=== PATIENT | male | born 1960 | race Caucasian/White ===

== ENCOUNTER 2017-09-04 11:19 | Observation (INO) | payer SELFPAY ==
[2017-09-04 11:50] LABS: Basophils # (A) 0.1 k/uL (0-0.2); Basophils % (A) 1 %; Eosinophils # (A) 0.1 k/uL (0-0.7); Eosinophils % (A) 1 %; HCT 43.7 % (39.0-53.0); HGB 14.8 gm/dL (13.0-17.5); Lymphocytes # (A) 1.2 k/uL (1.0-4.8); Lymphocytes % (A) 14 %; MCH 29.2 pg (25.0-35.0); MCHC 33.9 g/dL (31.0-37.0); MCV 86.2 fL (80.0-100.0); Mean Platelet Volume 7.3; Monocytes # (A) 0.3 k/uL (0-1.0); Monocytes % (A) 3 %; Neutrophils # (A) 6.7 k/uL (1.3-7.7); Neutrophils % (A) 80 %; Platelet Count 237 k/uL (150-450); RBC 5.07 m/uL (4.30-5.90); RDW 12.3 % (11.5-15.5); WBC 8.4 k/uL (3.8-10.6)
--- NOTE | 2017-09-04 11:55 | ED ---
General Adult HPI - General Chief complaint: Chest Pain Stated complaint: chest pain Time Seen by Provider: 09/04/17 11:25 Source: patient, RN notes reviewed, old records reviewed Mode of arrival: ambulatory Limitations: no limitations - History of Present Illness Initial comments: This is a 56-year-old male the ER for evaluation of chest pain patient's family history of heart disease positive high cholesterol. Patient using diet and exercise. Patient states he had twinges of substernal pressure left-sided chest. Which happened this morning. Symptoms have abated. No shortness of breath no diaphoresis no trauma. No fevers cough or congestion. No recent travel history. - Related Data Home Medications Medication Instructions Recorded Confirmed Flaxseed [Flaxseed Oil] 1 tab PO DAILY 10/22/14 09/04/17 Garlic 0.5 tab PO DAILY 10/22/14 09/04/17 Multivitamin [Men's Multi-Vitamin] 1 tab PO DAILY 10/22/14 09/04/17 Aspirin EC [Ecotrin Low Dose] 243 mg PO DAILY 09/04/17 09/04/17 Allergies Allergy/AdvReac Type Severity Reaction Status Date / Time No Known Allergies Allergy Verified 09/04/17 11:43 Review of Systems ROS Statement: Those systems with pertinent positive or pertinent negative responses have been documented in the HPI. ROS Other: All systems not noted in ROS Statement are negative. Past Medical History Past Medical History: No Reported History Additional Past Medical History / Comment(s): Diverticulosis History of Any Multi-Drug Resistant Organisms: None Reported Past Surgical History: Orthopedic Surgery Additional Past Surgical History / Comment(s): left knee surgery, left ankle surgery Past Anesthesia/Blood Transfusion Reactions: No Reported Reaction Past Psychological History: No Psychological Hx Reported Smoking Status: Never smoker Past Alcohol Use History: Occasional Past Drug Use History: None Reported - Past Family History Mother Family Medical History: Memory Impairment, Pneumonia Father Family Medical History: Hypertension, Myocardial Infarction ([place]), Rheumatoid Arthritis ([place]) General Exam Limitations: no limitations General appearance: alert, in no apparent distress Head exam: Present: atraumatic, normocephalic, normal inspection Eye exam: Present: normal appearance, PERRL, EOMI. Absent: scleral icterus, conjunctival injection, periorbital swelling ENT exam: Present: normal exam, mucous membranes moist Neck exam: Present: normal inspection. Absent: tenderness, meningismus, lymphadenopathy Respiratory exam: Present: normal lung sounds bilaterally. Absent: respiratory distress, wheezes, rales, rhonchi, stridor Cardiovascular Exam: Present: regular rate, normal rhythm, normal heart sounds. Absent: systolic murmur, diastolic murmur, rubs, gallop, clicks GI/Abdominal exam: Present: soft, normal bowel sounds. Absent: distended, tenderness, guarding, rebound, rigid Extremities exam: Present: normal inspection, full ROM, normal capillary refill. Absent: tenderness, pedal edema, joint swelling, calf tenderness Back exam: Present: normal inspection Neurological exam: Present: alert, oriented X3, CN II-XII intact Psychiatric exam: Present: normal affect, normal mood Skin exam: Present: warm, dry, intact, normal color. Absent: rash Course Vital Signs 09/04/17 09/04/17 09/04/17 11:22 13:50 13:52 Temperature 98.5 F Pulse Rate 107 H 86 85 Respiratory 18 19 16 Rate Blood Pressure 157/79 127/76 127/76 O2 Sat by Pulse 99 100 98 Oximetry 09/04/17 14:00 Temperature Pulse Rate 90 Respiratory Rate Blood Pressure O2 Sat by Pulse 97 Oximetry - Reevaluation(s) Reevaluation #1: 09/04/17 16:32 Patient having episodic chest pain, patient does have increased mild troponin leak EKG Findings - EKG Comments: EKG Findings:: EKG shows sinus tachycardia rate 105, [place] 134, QRS 84, QTC 449 Medical Decision Making - Medical Decision Making 56 male the ER with chest pain. Patient with mild troponin leak, patient be admitted for cardiac observation, telemetry and serial troponins, - Lab Data Result diagrams: 09/04/17 11:35 09/04/17 11:35 Lab Results 09/04/17 09/04/17 09/04/17 Range/Units 11:35 11:35 11:35 WBC 8.4 (3.8-10.6) k/uL RBC 5.07 (4.30-5.90) m/uL Hgb 14.8 (13.0-17.5) gm/dL Hct 43.7 (39.0-53.0) % MCV 86.2 (80.0-100.0) fL MCH 29.2 (25.0-35.0) pg MCHC 33.9 (31.0-37.0) g/dL RDW 12.3 (11.5-15.5) % Plt Count 237 (150-450) k/uL Neutrophils % 80 % Lymphocytes % 14 % Monocytes % 3 % Eosinophils % 1 % Basophils % 1 % Neutrophils # 6.7 (1.3-7.7) k/uL Lymphocytes # 1.2 (1.0-4.8) k/uL Monocytes # 0.3 (0-1.0) k/uL Eosinophils # 0.1 (0-0.7) k/uL Basophils # 0.1 (0-0.2) k/uL PT (9.0-12.0) sec INR (<1.2) APTT (22.0-30.0) sec D-Dimer (<0.60) mg/L FEU Sodium 140 (137-145) mmol/L Potassium 4.3 (3.5-5.1) mmol/L Chloride 104 (98-107) mmol/L Carbon Dioxide 24 (22-30) mmol/L Anion Gap 12 mmol/L BUN 14 (9-20) mg/dL Creatinine 0.89 (0.66-1.25) mg/dL Est GFR (MDRD) Af Amer >60 (>60 ml/min/1.73 sqM) Est GFR (MDRD) Non-Af >60 (>60 ml/min/1.73 sqM) Glucose 93 (74-99) mg/dL Calcium 9.4 (8.4-10.2) mg/dL Magnesium 2.0 (1.6-2.3) mg/dL Total Bilirubin 1.6 H (0.2-1.3) mg/dL AST 27 (17-59) U/L ALT 32 (21-72) U/L Alkaline Phosphatase 87 (38-126) U/L Total Creatine Kinase 57 (55-170) U/L CK-MB (CK-2) 1.0 (0.0-2.4) ng/mL CK-MB (CK-2) Rel Index 1.8 Troponin I 0.019 (0.000-0.034) ng/mL Total Protein 7.4 (6.3-8.2) g/dL Albumin 4.6 (3.5-5.0) g/dL Lipase 119 (23-300) U/L 09/04/17 09/04/17 Range/Units 11:35 14:50 WBC (3.8-10.6) k/uL RBC (4.30-5.90) m/uL Hgb (13.0-17.5) gm/dL Hct (39.0-53.0) % MCV (80.0-100.0) fL MCH (25.0-35.0) pg MCHC (31.0-37.0) g/dL RDW (11.5-15.5) % Plt Count (150-450) k/uL Neutrophils % % Lymphocytes % % Monocytes % % Eosinophils % % Basophils % % Neutrophils # (1.3-7.7) k/uL Lymphocytes # (1.0-4.8) k/uL Monocytes # (0-1.0) k/uL Eosinophils # (0-0.7) k/uL Basophils # (0-0.2) k/uL PT 11.4 (9.0-12.0) sec INR 1.2 H (<1.2) APTT 26.9 (22.0-30.0) sec D-Dimer 0.22 (<0.60) mg/L FEU Sodium (137-145) mmol/L Potassium (3.5-5.1) mmol/L Chloride (98-107) mmol/L Carbon Dioxide (22-30) mmol/L Anion Gap mmol/L BUN (9-20) mg/dL Creatinine (0.66-1.25) mg/dL Est GFR (MDRD) Af Amer (>60 ml/min/1.73 sqM) Est GFR (MDRD) Non-Af (>60 ml/min/1.73 sqM) Glucose (74-99) mg/dL Calcium (8.4-10.2) mg/dL Magnesium (1.6-2.3) mg/dL Total Bilirubin (0.2-1.3) mg/dL AST (17-59) U/L ALT (21-72) U/L Alkaline Phosphatase (38-126) U/L Total Creatine Kinase (55-170) U/L CK-MB (CK-2) (0.0-2.4) ng/mL CK-MB (CK-2) Rel Index Troponin I 0.022 (0.000-0.034) ng/mL Total Protein (6.3-8.2) g/dL Albumin (3.5-5.0) g/dL Lipase (23-300) U/L - Radiology Data Radiology results: report reviewed (CTA chest negative), image reviewed Critical Care Time Critical Care Time: Yes Total Critical Care Time: 31 Disposition Clinical Impression: Chest pain Disposition: ADMITTED IP TO THIS [facility] Condition: Undetermined
[2017-09-04 12:03] LABS: ALT 32 U/L (21-72); AST 27 U/L (17-59); Albumin 4.6 g/dL (3.5-5.0); Alkaline Phosphatase 87 U/L (38-126); Anion Gap 12 mmol/L; Blood Urea Nitrogen 14 mg/dL (9-20); Calcium 9.4 mg/dL (8.4-10.2); Carbon Dioxide 24 mmol/L (22-30); Chloride 104 mmol/L (98-107); Glucose 93 mg/dL (74-99); Lipase 119 U/L (23-300); Potassium 4.3 mmol/L (3.5-5.1); Sodium 140 mmol/L (137-145); Total Bilirubin 1.6 mg/dL (0.2-1.3); Total Protein 7.4 g/dL (6.3-8.2)
[2017-09-04 12:11] LABS: D-Dimer 0.22 mg/L FEU (<0.60); INR 1.2 (<1.2); Partial Thromboplastin Time 26.9 sec (22.0-30.0); Prothrombin Time 11.4 sec (9.0-12.0)
[2017-09-04 12:30] LABS: Troponin I 0.019 ng/mL (0.000-0.034)
[2017-09-04] MEDS ORDERED: RX INFO: IV CONTRAST WAS GIVEN 1 EACH MISC MISCELLANE PRN (12:33)
--- NOTE | 2017-09-04 13:20 | CT ---
EXAMINATION TYPE: CT angio chest DATE OF EXAM: 09/04/2017 COMPARISON: NONE HISTORY: chest pain rule out pulmonary embolism CT DLP: 2334 (CTA chest and CT abd pelvis) mGycm. Automated Exposure Control for Dose Reduction was U tilized. CONTRAST: CTA scan of the thorax is performed with IV Contrast, patient injected with 100 mL of Omnipaque 350, pulmonary embolism protocol. MIP Images are created on CT scanner and reviewed. FINDINGS: LUNGS: There is linear atelectasis or scarring superiorly in the right lower lobe. There is depende nt atelectasis in the bilateral bases near diaphragm. No suspicious nodule or mass is present bilater ally. There is no pleural effusion or pneumothorax seen bilaterally. The tracheobronchial tree is pa tent. MEDIASTINUM: There is suboptimal bolus with equal contrast seen in right and left heart systems, ther e is no large central pulmonary embolism. Smaller segmental and subsegmental PE is not clearly identi fied but there is more heterogeneous material at this level noted making evaluation slightly suboptim al. No aortic aneurysm or dissection. There are no greater than 1 cm hilar or mediastinal lymph nodes . No cardiomegaly or pericardial effusion is seen. OTHER: Bilateral gynecomastia is appreciated. IMPRESSION: Suboptimal study without CT evidence for pulmonary embolism. No suspicious acute pulmonar y process identified.
--- NOTE | 2017-09-04 13:25 | CT ---
EXAMINATION TYPE: CT abdomen pelvis w con DATE OF EXAM: 09/04/2017 COMPARISON: NONE HISTORY: chest and abdominal pain not further specified CT DLP: 2334 (CTA chest and CT abd pelvis) mGycm, Automated Exposure Control for Dose Reduction was U tilized. CONTRAST: CT scan of the abdomen and pelvis is performed without oral but with IV Contrast, patient injected wi th 100 mL of Omnipaque 350. FINDINGS: LUNG BASES: Please refer to same day CTA study for complete details on lower thorax. LIVER/GB: No significant abnormality is appreciated. PANCREAS: No significant abnormality is seen. SPLEEN: No significant abnormality is seen. ADRENALS: No significant abnormality is seen. KIDNEYS: No significant abnormality is seen. BOWEL: No suspicious bowel dilatation is seen. Small bowel feces sign terminal ileum is noted. Scat tered colonic diverticula are present. There is no convincing CT evidence for acute diverticulitis PROSTATE/SEMINAL VESICLES: Scattered pelvic phleboliths are present. Prostate gland is within normal limits but slightly bulging on bladder base. Bladder wall thickness is upper limits of normal. LYMPH NODES: No greater than 1cm abdominal or pelvic lymph nodes are appreciated. OSSEOUS STRUCTURES: Bilateral pars defects L5 level are seen. There is grade 1 anterolisthesis of L5 on S1. There is moderate to advanced disc space narrowing with vacuum disc phenomenon L5-S1 level. OTHER: No significant additional abnormality is seen. IMPRESSION: Colonic diverticulosis without CT evidence for acute diverticulitis. No significant acute finding is seen to account for patient's clinical symptoms.
[2017-09-04] MEDS ORDERED: HEPARIN SODIUM,PORCINE 5,000 UNIT/ML 1 ML VIAL IV ONE (16:17)
[2017-09-04] MEDS ORDERED: ASPIRIN 81 MG PO STA (16:17)
[2017-09-04] MEDS ORDERED: HEPARIN SODIUM,PORCINE 5,000 UNIT/ML 1 ML VIAL IV PRN (16:17)
[2017-09-04] MEDS ORDERED: NITROGLYCERIN SL TABS 0.4 MG TAB SUBLINGUAL PRN (16:17)
[2017-09-04] MEDS ORDERED: HEPARIN SOD,PORK IN 0.45% NACL 25,000 UNIT in 0.45% NACL 1 500ML.BAG IV SCH (16:30)
[2017-09-04 18:28] LABS: Creatine Kinase MB 0.7 ng/mL (0.0-2.4); Troponin I 0.021 ng/mL (0.000-0.034)
[2017-09-04] MEDS: METOPROLOL TARTRATE 25 MG TAB PO SCH (20:21)
--- NOTE | 2017-09-04 23:28 | HP ---
HISTORY AND PHYSICAL I am covering for Dr. King. HISTORY OF PRESENT ILLNESS: This 56-year-old gentleman with a past medical history of multiple medical problems, including GI bleed, history of pneumonia, history anemia, diverticulosis, history of hernia repair being followed by Dr. King in the outpatient setting, having an upper respiratory infection recently. The patient is complaining of chest pain which are twinges felt on the on the center part of the chest and also on the left-side of the chest and it happened this morning without much radiation palpitations, sweating or shortness of breath and patient came to [facility] and was admitted for further evaluation and treatment. The patient had abdominal-pelvis CAT scan which showed colonic diverticulosis without any evidence of acute symptoms and a chest CT was also done to rule out the possibility of pulmonary embolism, which is suboptimal , but no evidence of pulmonary embolism was noted. There was no history of any fever, rigors. No history of headache loss of consciousness, seizures. PAST MEDICAL HISTORY: History of GI bleed, pneumonia, diverticulosis, hernia repair, DJD. MEDICATIONS PRIOR TO ADMISSION: Include: 1. Ecotrin 160 mg p.o. daily. 2. Multivitamins 1 p.o. daily. 3. Garlic 0.5 daily. 4. Flaxseed oil 1 tablet p.o. daily. ALLERGIES: None. FAMILY HISTORY: History of memory impairment, pneumonia in the family. SOCIAL HISTORY: No history of smoking. Occasional alcohol intake. REVIEW OF SYSTEMS: ENT: Mentioned earlier. CARDIOVASCULAR: As mentioned earlier. RESPIRATORY: As mentioned earlier. GI: No nausea or vomiting. : No dysuria. NERVOUS: No numbness or weakness. ALLERGY/IMMUNOLOGY: No asthma or hay fever. MUSCULOSKELETAL: As mentioned earlier. HEMATOLOGY/ONCOLOGY: No history of anemia. ENDOCRINE: No history of diabetes, hypothyroidism. CONSTITUTIONAL: As mentioned earlier. DERMATOLOGY: Negative. RHEUMATOLOGY: Negative. PSYCHIATRY: As mentioned earlier. PHYSICAL EXAMINATION: Alert, oriented x3. Pulse 82, blood from 150/87, respirations 16, temperature 97 degrees, pulse ox 98% on room air. HEENT: Conjunctivae normal. Oral mucosa moist. NECK: No jugular venous distention. No carotid bruits. No lymph node enlargement. CARDIOVASCULAR: S1, S2 muffled. RESPIRATORY: Breath sounds diminished in the bases. No rhonchi. No crackles. ABDOMEN: Soft, nontender. No mass palpable. LEGS: No edema. No swelling. NERVOUS SYSTEM: Higher functions as mentioned earlier. Moves all 4 limbs. No focal motor or sensory deficits. LYMPHATIC: No lymphadenopathy in neck or axillae. SKIN: No ulcer, rash or bleeding. LABS: CBC within normal limits. The INR is 1.2. Bilirubin is 1.6 and creatine kinase 45. Influenza negative. ASSESSMENT: 1. Chest pain, possible unstable angina, possibly musculoskeletal. 2. History of recent upper respiratory infection. 3. History of gastrointestinal bleed. 4. History of pneumonia. 5. History of gastritis. 6. History of hernia repair. 7. History of degenerative joint disease/. RECOMMENDATIONS AND DISCUSSION: In this 56-year-old gentleman who presented with multiple medical problems, we will monitor the patient closely, continue the current medical management and symptomatic treatment. Otherwise at this time I would recommend rule out myocardial infarction, unstable angina protocol. Closely monitor. Otherwise, cardiology consultation, possible stress test with the primary physician. Also recommend the patient closely follow with Dr. King in the outpatient setting as well. MMODL / IJN: [id number] / [place]
[2017-09-05 00:21] LABS: Creatine Kinase MB 0.7 ng/mL (0.0-2.4); Troponin I 0.026 ng/mL (0.000-0.034)
[2017-09-05 07:10] LABS: Mean Platelet Volume 6.9; Platelet Count 221 k/uL (150-450)
[2017-09-05 07:50] LABS: Cholesterol 221 mg/dL (<200); HDL Cholesterol 58 mg/dL (40-60); LDL Cholesterol,Calculated 148 mg/dL (0-99); Triglycerides 74 mg/dL (<150)
--- NOTE | 2017-09-05 08:25 | P.CRDCN ---
History of Present Illness Consult date: 09/05/17 Requesting physician: Ryan King Consult reason: chest pain Chief complaint: Chest pain History of present illness: This is a 56-year-old gentleman with no prior documented history of hypertension, no hyperlipidemia, nondiabetic, he is a nonsmoker, patient does have a family history of premature coronary artery disease in his father. Patient does have a history of prior GI bleed, history of pneumonia, history of anemia. He is physically active, works out every day, also walks his dog several miles a day. For the past few days, patient states he's been noticing a tightness in his chest, according to the patient, prior to coming to the hospital, he states that he was walking down his driveway, and became lightheaded like he may pass out. Associated with that he also had this persistent chest tightness which seems to come and go especially with exertion. For these reasons he came to the emergency room for further evaluation. His initial EKG performed on arrival here showed a sinus tachycardia nonspecific ST- T wave changes, EKG performed this morning shows a normal sinus rhythm with nonspecific ST-T wave changes. The pressure on arrival here 156/78, heart rate 108, temperature 98.5 East 99% on room air. Blood pressure this morning 123/72 , heart rate in the 60s, he is afebrile. CBC is normal. D-dimer negative. Sodium 140, potassium 4.3, BUN 14, creatinine 0.8. Troponins 0.019, 0.0-2, 0.0- 1, 0.026. Influenza A and B were negative. Cholesterol 221, LDL 148, HDL 58, triglycerides 70. CAT scan of the abdomen and pelvis was performed which revealed diverticulosis. CT of the chest negative for pulmonary embolism. At the time of my examination this morning he is currently chest pain-free, he does state that earlier this morning he had chills lasting approximately a half hour. Past Medical History Past Medical History: GI Bleed, Pneumonia Additional Past Medical History / Comment(s): anemia Diverticulosis, gastritis History of Any Multi-Drug Resistant Organisms: None Reported Past Surgical History: Hernia Repair, Orthopedic Surgery, Tonsillectomy Additional Past Surgical History / Comment(s): left knee surgery(acl, chipped meniscus), left ankle arthroscopy, rt inguinal hernia, egd, colonoscopy Past Anesthesia/Blood Transfusion Reactions: No Reported Reaction Smoking Status: Never smoker - Past Family History Mother Family Medical History: Memory Impairment, Pneumonia Father Family Medical History: Hypertension, Myocardial Infarction ([place]), Rheumatoid Arthritis ([place]) Medications and Allergies Home Medications Medication Instructions Recorded Confirmed Type Flaxseed [Flaxseed Oil] 1 tab PO DAILY 10/22/14 09/04/17 History Garlic 0.5 tab PO DAILY 10/22/14 09/04/17 History Multivitamin [Men's Multi-Vitamin] 1 tab PO DAILY 10/22/14 09/04/17 History Aspirin EC [Ecotrin Low Dose] 162 mg PO DAILY 09/04/17 09/04/17 History Allergies Allergy/AdvReac Type Severity Reaction Status Date / Time No Known Allergies Allergy Verified 09/04/17 11:43 Physical Exam Vitals: Vital Signs Temp Pulse Pulse Resp BP BP Pulse Ox 09/05/17 04:00 98 F 61 18 123/72 97 09/05/17 03:51 64 18 09/04/17 23:58 66 18 09/04/17 22:07 74 18 113/66 95 09/04/17 20:26 97 F L 82 16 150/87 98 09/04/17 20:00 82 16 09/04/17 19:10 97.1 F L 97 17 142/87 98 09/04/17 17:37 99 09/04/17 17:19 97.7 F 82 18 133/78 97 09/04/17 14:00 90 97 09/04/17 13:52 85 16 127/76 98 09/04/17 13:50 86 19 127/76 100 09/04/17 11:22 98.5 F 107 H 18 157/79 99 Intake and Output 09/04/17 09/05/17 09/05/17 22:59 06:59 14:59 Intake Total 1120 363.918 Balance 1120 363.918 Intake: IV 200 Heparin Sod,Pork in 0.45% 200 NaCl 25,000 unit In 0.45 % NaCl 1 500ml.bag @ 11.4 UNITS/KG/HR 19.85 mls/hr IV .Q24H [facility] Rx#: [id number] Intake, IV Titration 80 163.918 Amount Heparin Sod,Pork in 0.45% 80 163.918 NaCl 25,000 unit In 0.45 % NaCl 1 500ml.bag @ 11.4 UNITS/KG/HR 19.85 mls/hr IV .Q24H [facility] Rx#: [id number] Oral 1040 Other: Voiding Method Toilet Toilet # Voids 2 2 Weight 91.3 kg PHYSICAL EXAMINATION: HEENT: [Head is atraumatic, normocephalic. Pupils equal, round. Neck is supple. There is no elevated jugular venous pressure.] HEART EXAMINATION: [Heart S1, S2 normal. No murmur or gallop heard.] CHEST EXAMINATION:[ Lungs are clear to auscultation and precussion. No chest wall tenderness is noted on palpation or with deep breathing.] ABDOMEN: [ Soft, nontender. Bowel sounds are heard. No organomegaly noted]. EXTREMITIES:[ 2+ peripheral pulses with no evidence of peripheral edema and no calf tenderness noted]. NEUROLOGIC [patient is awake, alert and oriented -3.] . Results 09/05/17 06:57 09/04/17 11:35 Cardiac Enzymes 09/04/17 09/04/17 09/04/17 Range/Units 11:35 11:35 14:50 AST 27 (17-59) U/L CK-MB (CK-2) 1.0 (0.0-2.4) ng/mL Troponin I 0.019 0.022 (0.000-0.034) ng/mL 09/04/17 09/04/17 Range/Units 17:35 23:19 AST (17-59) U/L CK-MB (CK-2) 0.7 0.7 (0.0-2.4) ng/mL Troponin I 0.021 0.026 (0.000-0.034) ng/mL Coagulation 09/04/17 09/04/17 09/05/17 Range/Units 11:35 23:19 06:57 PT 11.4 (9.0-12.0) sec APTT 26.9 39.3 H 47.3 H (22.0-30.0) sec Lipids 09/05/17 Range/Units 06:57 Triglycerides 74 (<150) mg/dL Cholesterol 221 H (<200) mg/dL HDL Cholesterol 58 (40-60) mg/dL CBC 03/02/18 03/03/18 Range/Units 11:35 06:57 WBC 8.4 (3.8-10.6) k/uL RBC 5.07 (4.30-5.90) m/uL Hgb 14.8 (13.0-17.5) gm/dL Hct 43.7 (39.0-53.0) % Plt Count 237 221 (150-450) k/uL Comprehensive Metabolic Panel 09/04/17 Range/Units 11:35 Sodium 140 (137-145) mmol/L Potassium 4.3 (3.5-5.1) mmol/L Chloride 104 (98-107) mmol/L Carbon Dioxide 24 (22-30) mmol/L BUN 14 (9-20) mg/dL Creatinine 0.89 (0.66-1.25) mg/dL Glucose 93 (74-99) mg/dL Calcium 9.4 (8.4-10.2) mg/dL AST 27 (17-59) U/L ALT 32 (21-72) U/L Alkaline Phosphatase 87 (38-126) U/L Total Protein 7.4 (6.3-8.2) g/dL Albumin 4.6 (3.5-5.0) g/dL Current Medications Generic Name Dose Route Start Last Admin Trade Name Freq PRN Reason Stop Dose Admin Aspirin 325 mg 09/05/17 09:00 Aspirin PO DAILY [facility] Atorvastatin Calcium 80 mg 09/05/17 09:00 Lipitor PO DAILY [facility] Heparin Sodium (Porcine) 0 unit 09/04/17 16:17 Heparin IV Q6HR PRN Low PTT Protocol Heparin Sodium/Sodium Chloride 500 mls @ 19.85 mls/hr 09/04/17 16:30 01:01 25,000 unit/ Sodium Chloride IV 14.48 units/kg/hr .Q24H [facility] 25.22 mls/hr Protocol Titration 11.4 UNITS/KG/HR Metoprolol Tartrate 25 mg 09/04/17 21:00 09/04/17 20:21 Lopressor PO 25 mg BID [facility] Administration Miscellaneous Information 1 each 09/04/17 12:33 09/04/17 13:47 Rx Info: Iv Contrast Was Given MISCELLANE 09/06/17 12:33 1 each DAILY PRN Administration Per Protocol Nitroglycerin 0.4 mg 09/04/17 16:17 Nitrostat SUBLINGUAL Q5M PRN Chest Pain Intake and Output 09/04/17 09/05/17 09/05/17 22:59 06:59 14:59 Intake Total 1120 363.918 Balance 1120 363.918 Intake: IV 200 Heparin Sod,Pork in 0.45% 200 NaCl 25,000 unit In 0.45 % NaCl 1 500ml.bag @ 11.4 UNITS/KG/HR 19.85 mls/hr IV .Q24H [facility] Rx#: [id number] Intake, IV Titration 80 163.918 Amount Heparin Sod,Pork in 0.45% 80 163.918 NaCl 25,000 unit In 0.45 % NaCl 1 500ml.bag @ 11.4 UNITS/KG/HR 19.85 mls/hr IV .Q24H [facility] Rx#: [id number] Oral 1040 Other: Voiding Method Toilet Toilet # Voids 2 2 Weight 91.3 kg 09/05/17 06:57 09/04/17 11:35 EKG Interpretations (text) EKG shows normal sinus rhythm with nonspecific ST-T wave changes Assessment and Plan Plan: Assessment and plan #1 symptoms of exertional chest tightness, suggestive of acute coronary syndrome. Troponin 0.019, 0.022, 0.021, 0.026. D-dimer negative. EKG shows normal sinus rhythm with nonspecific ST-T wave changes #2 cardiac risk factors negative for hypertension, no diabetes, no prior documented hyperlipidemia, nonsmoker. Cholesterol here is 221, LDL 148, HDL 58 , triglycerides 74 #3 family history of premature coronary artery disease Plan Will obtain an echocardiogram with Doppler study. Patient has also been initiated here on Lipitor, he is also on aspirin, IV heparin drip, metoprolol was initiated for high blood pressure and tachycardia on admission here. Patient has been advised to undergo cardiac catheterization, the risks and benefits were explained to him in detail, this will be performed today by Dr. Borden. DNP note has been reviewed, I agree with a documented findings and plan of care. Patient was seen and examined.
[2017-09-05] MEDS ORDERED: ASPIRIN 325 MG TAB PO SCH (09:00)
[2017-09-05] MEDS ORDERED: ATORVASTATIN 80 MG TAB PO SCH (09:00)
[2017-09-05] MEDS ORDERED: ASPIRIN 325 MG TAB PO STA (09:08)
[2017-09-05] MEDS ORDERED: ALPRAZolam 0.5 MG TAB PO PRN (09:08)
[2017-09-05] MEDS ORDERED: ATORVASTATIN 80 MG TAB PO STA (09:08)
[2017-09-05] MEDS ORDERED: NITROGLYCERIN SL TABS 0.4 MG TAB SUBLINGUAL PRN (09:08)
[2017-09-05] MEDS ORDERED: SODIUM CHLORIDE 0.9% 1,000 ML in EMPTY BAG 1 BAG IV ONE (09:08)
[2017-09-05] MEDS ORDERED: ALPRAZolam 0.25 MG TAB PO PRN (09:08)
[2017-09-05] MEDS: METOPROLOL TARTRATE 25 MG TAB PO SCH ×2 (09:27→19:47)
[2017-09-05] MEDS ORDERED: LIDOCAINE 2% INJ 20 MG/ML (20 ML MDV) ONE (09:50)
[2017-09-05] MEDS ORDERED: IV FLUID CONTINUATION 1,000 ML IV ONE (10:11)
[2017-09-05] MEDS ORDERED: MIDAZOLAM 2 MG/2 ML VIAL ONE (10:14)
[2017-09-05] MEDS ORDERED: fentaNYL (PF) 50 MCG/ML 2 ML AMP ONE (10:15)
[2017-09-05] MEDS ORDERED: fentaNYL (PF) 50 MCG/ML 2 ML AMP IV ONE (10:17)
[2017-09-05] MEDS: MIDAZOLAM 2 MG/2 ML VIAL IV ONE ×2 (10:17→10:20)
[2017-09-05] MEDS ORDERED: LIDOCAINE 2% INJ 20 MG/ML SQ ONE (10:19)
[2017-09-05] MEDS ORDERED: IOHEXOL 350 MG/ML 125ML BOTTLE INJ ONE (10:31)
[2017-09-05] MEDS ORDERED: RX INFO: IV CONTRAST WAS GIVEN 1 EACH MISC MISCELLANE PRN (11:03)
--- NOTE | 2017-09-05 11:17 | CC ---
CARDIAC CATHETERIZATION REPORT He is a 56-year-old gentleman who came to the hospital with a complaint of recent onset of recurrent exertional chest discomfort and shortness of breath. Patient's EKG was normal, but the troponins were mildly elevated. In view of that, the patient was recommended to have a cardiac catheterization for definitive diagnosis. PROCEDURE: The right groin was prepped and draped in the usual manner and the skin was infiltrated with 2% Xylocaine. The right femoral artery was entered using Seldinger technique, a #6-[place] sheath was placed in. Selective coronary angiography was then performed in multiple projections and the left ventriculography was performed in 30 degree [place] projection. Patient tolerated the procedure well. HEMODYNAMICS: Left ventricular end-diastolic pressure is 8 to 12 mmHg prior to angiography. No gradient is noted across the aortic valve. SELECTIVE CORONARY ANGIOGRAPHY: Left main coronary artery is normal and patent. LAD is mildly ectatic in its proximal portion and uses a good size diagonal branch. LAD and its branches are normal. Circumflex coronary artery is also mildly ectatic in its proximal portion. It gives rise to a good size obtuse marginal branch and it is normal. Right coronary artery is dominant in distribution, gives rise to the posterior descending artery and is normal. Left ventriculography reveals normal left ventricular systolic function. FINAL IMPRESSION: This study reveals some mildly ectatic proximal left anterior descending artery and circumflex coronary artery without any hemodynamically significant stenosis. Left ventricular end-diastolic pressure and ejection fractions are normal. RECOMMENDATIONS: Medical treatment and risk factor modification. MMODL / IJN: [id number] /
[2017-09-05] MEDS: SODIUM CHLORIDE 0.9% 1,000 ML IV SCH ×2 (11:23→19:48)
[2017-09-05] MEDS: CLOPIDOGREL 75 MG TAB PO SCH (11:57)
--- NOTE | 2017-09-05 17:54 | PN ---
PROGRESS NOTE DATE OF SERVICE: 09/05/2017 I am covering for Dr. King. This 56-year-old gentleman who was admitted with chest pain, possible unstable angina and musculoskeletal pain, is being closely monitored. No chest pain. No palpitations. The patient underwent a cardiac catheterization today. Cardiac cath showed mildly ectatic proximal LAD and circumflex artery without any hemodynamically significant stenosis. No chest pain. No palpitations. No fever. PHYSICAL EXAM: Alert and oriented x3. Pulse 63, blood pressure 110/63, respirations 16, temperature 98.7, pulse ox 94% room air. HEENT: Conjunctivae normal. Oral mucosa moist. NECK: No jugular venous distention. No carotid bruit. No lymph node enlargement. CARDIOVASCULAR: S1, S2. RESPIRATORY: Breath sounds diminished in the bases. A few rhonchi. No crackles. ABDOMEN: Soft, nontender. LEGS: No edema. NERVOUS SYSTEM: No focal abscess. CBC within normal limits. the aPTT is 339.3, cholesterol 221, LDL is 148. ASSESSMENT: 1. Chest pain, possible unstable angina, status post cardiac catheterization. 2. History of recent upper respiratory infection. 3. Hyperlipidemia. 4. History of gastrointestinal bleed. 5. History of pneumonia. 6. History of gastritis. 7. History of hernia. 8. History of degenerative joint disease. RECOMMENDATIONS AND DISCUSSION: This 56-year-old gentleman who presented with multiple complex medical issues, at this time, we will monitor the patient closely. Continue the current management and symptomatic treatment. Otherwise I would recommend continue the current medications. Otherwise, medical management. Antiplatelet agents. Lipitor. Closely monitor and recommend close follow up with Dr. King in the outpatient setting. MMODL / IJN: [id number] /
[2017-09-05] MEDS ORDERED: ATORVASTATIN 20 MG TAB PO SCH (21:00)
[2017-09-06 06:28] LABS: Mean Platelet Volume 7.1; Platelet Count 211 k/uL (150-450)
[2017-09-06] MEDS: METOPROLOL TARTRATE 25 MG TAB PO SCH (08:41)
[2017-09-06] MEDS: CLOPIDOGREL 75 MG TAB PO SCH (08:41)
[2017-09-06] MEDS ORDERED: ASPIRIN 81 MG PO SCH (09:00)
[2017-09-06] MEDS: SODIUM CHLORIDE 0.9% 1,000 ML IV SCH (09:05)
[2017-09-06 09:26] VITALS: PULSE 61; RESP 18
[2017-09-06] MEDS ORDERED: MULTIVITAMINS, THERA 1 EACH TAB PO SCH (12:00)
--- NOTE | 2017-09-06 13:41 | ECHOF ---
Referral Reason:chest pain MEASUREMENTS -------- HEIGHT: 175.3 cm WEIGHT: 91.2 kg BP: 138/89 RVIDd: 3.4 cm (< 3.3) IVSd: 0.9 cm (0.6 - 1.1) LVIDd: 4.6 cm (3.9 - 5.3) LVPWd: 1.0 cm (0.6 - 1.1) IVSs: 1.4 cm LVIDs: 2.8 cm LVPWs: 1.5 cm LAESV Index (A-L): 13.33 ml/m Ao Diam: 3.9 cm (2.0 - 3.7) AV Cusp: 2.5 cm (1.5 - 2.6) LA Diam: 3.3 cm (2.7 - 3.8) EPSS: 0.4 cm MV E Josesito: 0.49 m/s MV DecT: 339 ms MV A Josesito: 0.54 m/s MV E/A Ratio: 0.90 RAP: 5.00 mmHg RVSP: 28.73 mmHg MV EF SLOPE: 91.13 mm/s (70 - 150) MV EXCURSION: 2.28 cm (> 18.000) FINDINGS -------- Sinus rhythm. This was a technically adequate study. The left ventricular size is normal. Left ventricular wall thickness is normal. Overall left vent ricular systolic function is normal with, an EF between 55 - 60 %. The right ventricle is normal in size and function. Normal LA size by volume 22+/-6 ml/m2. The right atrium is normal in size. The aortic valve is trileaflet, and appears structurally normal. No aortic stenosis or regurgitation. The mitral valve leaflets are mildly thickened. There is trace to mild mitral regurgitation. Trace tricuspid regurgitation present. Right ventricular systolic pressure is normal at < 35 mmHg. There is no evidence of pulmonary hypertension. Trace/mild (physiologic) pulmonic regurgitation. The aortic root size is normal. Normal inferior vena cava with normal inspiratory collapse consistent with estimated right atrial pre ssure of 5 mmHg. The pericardium is normal. There is no pericardial effusion. CONCLUSIONS -------- 1. Sinus rhythm. 2. This was a technically adequate study. 3. The left ventricular size is normal. 4. Left ventricular wall thickness is normal. 5. Overall left ventricular systolic function is normal with, an EF between 55 - 60 %. 6. Normal LA size by volume 22+/-6 ml/m2. 7. The aortic valve is trileaflet, and appears structurally normal. No aortic stenosis or regurgitati on. 8. The mitral valve leaflets are mildly thickened. 9. There is trace to mild mitral regurgitation. 10. Trace tricuspid regurgitation present. 11. Right ventricular systolic pressure is normal at < 35 mmHg. 12. There is no evidence of pulmonary hypertension. 13. Trace/mild (physiologic) pulmonic regurgitation. 14. The aortic root size is normal. 15. There is no pericardial effusion. MANAGEMENT PROFESSIONAL: Cristobal Villa RDCS
--- NOTE | 2017-09-06 14:21 | PN ---
PROGRESS NOTE This patient was admitted with chest pain. The patient had abnormal enzymes suggestive of non-Q-wave myocardial infarction. Cardiac catheterization revealed mild coronary artery plaque without any hemodynamically significant stenosis. In view of that, the patient is recommended medical treatment. The patient's D-dimer was negative. Right groin is normal. Blood pressure is 140/78 mmHg. First and second heart sounds are normal. Lungs are clinically clear to auscultation and percussion. The patient will be discharged home and will be seen in the office in a couple of weeks. MMODL / IJN: [id number] /
[2017-09-06 14:31] VITALS: BP 136/70; TEMP 98.1
--- NOTE | 2017-09-07 00:01 | DS ---
DISCHARGE SUMMARY I am covering for Dr. King. FINAL DIAGNOSES: 1. Chest pain, possible unstable angina, status post cardiac catheterization. 2. Hyperlipidemia. 3. History of recent upper respiratory infection. 4. History of gastrointestinal bleed. 5. History of pneumonia. 6. History of gastritis. 7. History of hernia. 8. History of degenerative joint disease. DISCHARGE DISPOSITION: The patient is being discharged in stable condition with guarded prognosis. HISTORY OF PRESENT ILLNESS: This 56-year-old gentleman with a past medical history of multiple medical problems, being followed by Dr. King, admitted with chest pain, myocardial infarction cardiology performed a cardiac catheterization that showed recommended medical treatment. Otherwise the patient was treated medically. Improved significantly. PHYSICAL EXAMINATION: On exam, vital signs stable. Cardiovascular: S1, S2. Abdomen soft. Nervous system: No focal deficits. DISCHARGE ADVICE AND MEDICATIONS: 1. Discharge diet is cardiac. 2. Activity limited until follow up. 3. Follow up with Dr. King in 2-3 days. 4. Follow up with cardiology as recommended. 5. Ecotrin 81 mg daily. 6. Lipitor 20 mg q.h.s. 7. Plavix 75 mg p.o. daily. 8. Flaxseed oil 1 tab p.o. daily. 9. Garlic 0.5 daily. 10.Lopressor 25 mg p.o. b.i.d. 11.Multivitamins one p.o. daily. 12. MMBEATRICEL / TEQUILAN: [id number] / MTDD
== END 2017-09-06 15:25 | disposition home or self-care (01) ==
LOC: EC 11:19 → 3OBS 16:17 → 6SEL 09-05 19:32
PROVIDERS: ADMIT Family Medicine; ATTEND Family Medicine
DX: R07.89 Other chest pain (principal); R77.8 Other specified abnormalities of plasma proteins; R42 Dizziness and giddiness; E78.5 Hyperlipidemia, unspecified; K57.30 Diverticulosis of large intestine without perforation or abscess without bleeding; M19.90 Unspecified osteoarthritis, unspecified site; Z79.82 Long term (current) use of aspirin; Z87.01 Personal history of pneumonia (recurrent); Z87.19 Personal history of other diseases of the digestive system; Z87.09 Personal history of other diseases of the respiratory system; Z82.49 Family history of ischemic heart disease and other diseases of the circulatory system; Z83.42 Family history of familial hypercholesterolemia; Z82.61 Family history of arthritis; Z84.89 Family history of other specified conditions
CPT/HCPCS: 96376 ×2; 96365 ×2; 99291 ×2; 96366; 93005 ×2; 36415; 93306; 93458; 85379; 80061; 80053; 82550; 82553; 83690; 83735; 84484; 85025; 85049 ×2; 85610; 85730 ×2; 87502; 71275; 74177; G0378 ×3; C1760; C1894; C1769; J2001; J2250; J1644 ×2; Q9967 ×2; J3010

== ENCOUNTER → 2021-02-26 | Outpatient (CLI) | payer BC | END | disposition home or self-care (01) | LOC: LABWHC1 10:48 | PROVIDERS: ATTEND Podiatrist | DX: M19.072 Primary osteoarthritis, left ankle and foot (principal); Z87.39 Personal history of other diseases of the musculoskeletal system and connective tissue | CPT/HCPCS: 36415; 82306 ==

== ENCOUNTER 2021-03-15 07:56 | Day surgery (SDC) | payer BC ==
[2021-03-07 15:51] VITALS: BMI 28.3
[~2021-03-15 07:56] MED LIST: DEXAMETHASONE SOD PHOSPHATE 4 MG/ML 1 ML VIAL IV ONE; LACTATED RINGERS 1,000 ML IV SCH; MIDAZOLAM 2 MG/2 ML VIAL IV PRN; ONDANSETRON 4 MG/2 ML VIAL IVP ONE; SCOPOLAMINE 1.5MG/72HR PATCH TRANSDERM ONE
[2021-03-15] MEDS ORDERED: ONDANSETRON 4 MG/2 ML VIAL IVP ONE (08:46)
[2021-03-15] MEDS: fentaNYL (PF) 50 MCG/ML 2 ML AMP IV ONE ×3 (09:39→12:42)
[2021-03-15] MEDS ORDERED: LIDOCAINE 1% INJ 10MG/ML (20 ML MDV) ONE (09:46)
[2021-03-15] MEDS ORDERED: SUCCINYLCHOLINE CHLORIDE 100 MG/5 ML SYR IV ONE (09:46)
[2021-03-15] MEDS ORDERED: PROPOFOL 10 MG/ML 20 ML VIAL IV ONE (09:46)
[2021-03-15] MEDS ORDERED: LACTATED RINGERS 1,000 ML IV ONE (11:00)
--- NOTE | 2021-03-15 11:37 | P.ANPRN ---
Procedure Note - Anesthesia - Nerve Block Performed Left Popliteal Single Time Out Performed: Yes ([id number]) Date of Procedure: 03/15/21 Procedure Start Time: 09:58 Procedure Stop Time: 10:03 Location of Patient: PreOp Indication: Acute Post-Operative Pain, Requested by Surgeon Specifically requested for management of pain by DrKelvin: William Washington Sedation Type: Sedate with meaningful contact maintained Preparation: Sterile Prep Position: Right Lateral Catheter: None Needle Types: Pajunk Needle Gauge: 21 Ultrasound used to visualize needle placement: Yes Ultrasound used to observe medication spread: Yes Injectate: 0.5% Ropivacaine (see comment for volume) (15cc + 15cc NACL PF) Blood Aspirated: No Pain Paresthesia on Injection Noted: No Resistance on Injection: Normal Image Stored and Saved: Yes Events: Uneventful and Well Tolerated Left Adductor Canal Single Time Out Performed: Yes ([id number]) Date of Procedure: 03/15/21 Procedure Start Time: 10:04 Procedure Stop Time: 10:09 Location of Patient: PreOp Indication: Acute Post-Operative Pain, Requested by Surgeon Specifically requested for management of pain by Dr.: William Washington Sedation Type: Sedate with meaningful contact maintained Preparation: Sterile Prep Position: Supine Catheter: None Needle Types: Pajunk Needle Gauge: 21 Ultrasound used to visualize needle placement: Yes Ultrasound used to observe medication spread: Yes Injectate: 0.5% Ropivacaine (see comment for volume) (15cc + 15cc NACL PF) Blood Aspirated: No Pain Paresthesia on Injection Noted: No Resistance on Injection: Normal Image Stored and Saved: Yes Events: Uneventful and Well Tolerated
[2021-03-15] MEDS: HYDROmorphone 0.5 MG/0.5 ML SYRINGE IVP PRN ×2 (12:19→12:25)
[2021-03-15 12:23] VITALS: TEMP 97.7
--- NOTE | 2021-03-15 12:41 | XR ---
Fluoroscopy History: OA Left ankle fluoro time: 13sec, 3 images sent, OA Left ankle for arthrodesis. Dr. Washington.
[2021-03-15] MEDS ORDERED: HYDROcodone/APAP 7.5-325MG 1 EACH TAB ONE (13:29)
[2021-03-15] MEDS ORDERED: HYDROcodone/APAP 7.5-325MG 1 EACH TAB PO ONE (13:34)
[2021-03-15 14:18] VITALS: BP 109/71; PULSE 70; RESP 16
--- NOTE | 2021-03-15 14:39 | P.OP ---
Date of Procedure: 03/15/21 Preoperative Diagnosis: Primary osteoarthritis left ankle Postoperative Diagnosis: Same Procedure(s) Performed: Left ankle arthrodesis Implants: Arthrex anterior ankle fusion plate with associated screws 15 mL of AlloMatrix putty along with 2 vials of Augment Anesthesia: RAGHU Surgeon: William Washington Estimated Blood Loss (ml): 10 Pathology: none sent Condition: stable Disposition: PACU Operative Findings: Full thickness loss of cartilage of the talus and tibia at the ankle joint Description of Procedure: Prior to the patient being brought to the operating room and administered a nerve block on the left lower extremity using ultrasonic guidance and having the patient under mild sedation. Then the patient was brought into the operating room placed on table supine position. Timeout was taken to confirm correct patient identifiers, correct procedure, and correct site of surgery. When the room was in agreement the patient was induced and placed under general anesthesia. A well-padded tourniquet was placed on left thigh and a bump underneath the left hip to internally rotate the left leg and the left leg was prepped and draped usual manner. The leg was exsanguinated and the tourniquet inflated to 250 mmHg. Attention directed over the anterior ankle where the tibialis anterior and extensor hallucis longus tendons were palpated and identified a linear incision was made between the 2 tendons. It was deepened down to the subcutaneous layer careful to identify, avoid, and retract any neurovascular structures and cauterize any bleeding vessels. Blunt dissection was then continued down to the deep fascia overlying the 2 above-mentioned tendons. The fascia was incised between the 2 tendons at which point the tendons retracted medially and laterally as dissection continued the neurovascular structures were identified and carefully retracted laterally. Once the capsule and periosteum was reached linear incision was made through that tissue and then reflected medially and laterally to expose the entirety the joint as well as a dorsal aspect of the neck of the talus. Any osteophytes of the anterior surface of the tibia and dorsal aspect of the neck of the talus were removed with Ronjair. Then a sagittal saw was used to resect the subchondral bone on the joint surfaces of the talus and tibia. The sections of bone were removed and then a 2 mm drill bit to fenestrate the 2 surfaces to promote bleeding. A combination of AlloMatrix and Augment were then mixed on the back table and placed between the arthrodesis segments. An Arthrex anterior ankle fusion plate was then positioned over the anterior surface of the tibia and dorsal neck of the talus. Locking screws were then placed in the holes into the talus. Then the ankle was aligned so that it was at 90 with slight posterior displacement on fluoroscopy. And then it was temporarily fixated utilizing threaded olive wires. The compression screw was then drilled and inserted which allowed for narrowing and compression of the arthrodesis site. 2 additional locking screws were placed in the tibia to fixate the plate in place and additional nonlocking screw was then placed from the plate into the talus. Visually the construct was very solid there was no evidence of any motion at the arthrodesis site. Fluoroscopy showed that the hardware was in proper alignment. Once completed the area was thoroughly irrigated with saline. Deep closure the capsule was done with 0 Vicryl. Closure of the retinaculum over the tibialis anterior and extensor hallucis longus was done with 0 Vicryl. Subcutaneous closure was done with 3-0 Monocryl. Skin closure was done with kristie. A jumpstart dressings applied over the incision then a bulky dry dressings applied to left foot and ankle. The tourniquet was released and capillary refill return to all digits on the left foot. A well-padded, well molded plaster posterior mold/sugar tong splint was applied to the left leg and was held in place until dried. Patient tolerated above procedure and anesthesia well and left the operating room to recovery with vital signs stable.
== END 2021-03-15 14:36 | disposition home or self-care (01) ==
LOC: OR 07:56
PROVIDERS: ATTEND Podiatrist
DX: M19.072 Primary osteoarthritis, left ankle and foot (principal); K57.90 Diverticulosis of intestine, part unspecified, without perforation or abscess without bleeding; K21.9 Gastro-esophageal reflux disease without esophagitis
CPT/HCPCS: 64447; 64445; 76942; 73600; 27870; C1713 ×3; J2250; J1100; J0690; J2405; J2001; J3010; J0330; J2704; J1170